=== PATIENT | female | born 1990 | race African-American/Black ===

== ENCOUNTER 2016-10-29 11:38 | Emergency (ER) | payer BC ==
[~2016-10-29] VITALS: Wt 70.5 kg
--- NOTE | 2016-10-29 12:33 | ERD ---
ER Documentation Chief Complaint Date/Time DATE: 10/29/16 TIME: 12:31 Chief Complaint LEFT KNEE PAIN FROM PATELLA DISLOCATION NON TRAUMATIC. RELOCATED BY SELF HPI This is a very pleasant 26-year-old female who presents with left patella dislocation. Patient states that she was rotating and felt her left patella slid laterally. It spontaneously reduced when she was placed in a gurney by EMS. She initially describes 8 out of 10 throbbing pain but now has resolution of pain. This is happened before. She denies any fevers or chills, no calf pain, no numbness or tingling distally. ROS All systems reviewed and are negative except as per history of present illness. Medications Home Meds No Active Prescriptions or Reported Meds Allergies Allergies: Coded Allergies: No Known Allergy (Unverified , 10/29/16) PMhx/Soc Medical and Surgical Hx: pt denies Medical Hx, pt denies Surgical Hx Hx Alcohol Use: No Hx Substance Use: No Hx Tobacco Use: No Smoking Status: Never smoker FmHx Family History: No diabetes Physical Exam Vitals Vital Signs Date Time Temp Pulse Resp B/P Pulse Ox O2 Delivery O2 Flow Rate FiO2 10/29/16 11:45 98.2 94 18 119/68 98 Physical Exam General: Well developed, well nourished, no acute distress Head: Normocephalic, atraumatic. Eyes: EOM intact ENT: Moist mucous membranes Neck: Full ROM Respiratory: No respiratory distress Cardiovascular: Good capillary refil Abdominal: Nondistended : Deferred MSK: Left knee with mild effusion and mild soft tissue tenderness but full active and passive range of motion without lateral displacement of the patella. Intact extensor function of the left lower extremity. 2+ dorsalis pedis and posterior tibial pulses. Neurologic: Alert and oriented, moving all extremities , normal speech, steady gait Skin: No rash Psych: Normal mood Procedures/MDM EKG, MONITORS, & DIAGNOSTIC IMAGING: X-ray left knee: I reviewed and interpreted multiple views of the x-ray Bones: No evidence of acute fracture dislocation or subluxation Soft tissue: No evidence of foreign body PROCEDURES: Splint Application Note: Splint type: Knee immobilizer Extremity: Left knee Indication: Patella dislocation The patient was consented at bedside prior to splint application and states understanding of risks, benefits, and alternatives. The patient was neurovascularly intact prior to and status post application of the splint. The patient tolerated the procedure well and there were no complications. MEDICAL DECISION MAKING: Clinical presentation is very consistent with spontaneous reduction of a left lateral patella dislocation. The patient had spontaneous reduction and has had similar symptoms in the past. The patient will benefit from outpatient orthopedic surgery follow-up. X-ray imaging to rule out fracture the low clinical concern for this. No signs or symptoms concerning for knee dislocation or acute arterial process. No evidence of DVT. ER COURSE: X-ray imaging and immobilization as documented above. The patient is safe for discharge she was offered pain medication but refused. I kept the patient and/or family informed of laboratory and diagnostic imaging results throughout the emergency room course. DISPOSITION PLAN: We discussed follow up with the patient's primary care doctor within 24 to 48 hours as needed. We also discussed return to the emergency room for worsening symptoms or worsening condition. Outpatient referral: Orthopedic surgery Discharge Medications: Motrin Departure Diagnosis: Primary Impression: Dislocation of patella, left, closed Encounter type: initial encounter Qualified Code: S83.005A - Closed dislocation of left patella, initial encounter Condition: Stable DELMA WHITTAKER MD Oct 29, 2016 12:33
--- NOTE | 2016-10-29 12:55 | RADRPT ---
PROCEDURE: XR Knee. CLINICAL INDICATION: Multiple patellar dislocations. TECHNIQUE: 4 views of the left knee are available for review. COMPARISON: None available FINDINGS: The medial and lateral femorotibial compartments are preserved, as is the patellofemoral compartment . There is no acute osseous abnormality, marginal erosion or evidence of fracture. There is evidence of patella christin. The patella is currently located. A joint effusion is seen. IMPRESSION: 1. Evidence of patella although without dislocation at this time. 2. No acute osseous abnormality. 3. Joint effusion. RPTAT: QQ .Jorge Terry MD, MD Date Time Electronically viewed and signed by .Jorge Terry MD, MD on 10/29/2016 12:55 .d/
[2016-10-29] MEDS ORDERED: IBUP800T25 PO (13:16)
[2016-10-29 13:30] VITALS: BP 112/61; PULSE 72; RESP 18; TEMP 97.6
== END 2016-10-29 13:32 | disposition home or self-care (01) ==
LOC: E/R 11:38
DX: M22.02 Recurrent dislocation of patella, left knee (principal)
CPT/HCPCS: 73564